=== PATIENT | female | born 1990 | race American Indian/Alaskan Native ===

== ENCOUNTER 2019-02-10 18:24 | Emergency (ER) | payer OTHER ==
[2019-02-10 18:29] VITALS: BP 124/46
--- NOTE | 2019-02-10 18:34 | Emergency Department Report ---
Blank Doc - Documentation Documentation: suddne onset of lower abdominal pain
[2019-02-10 19:31] LABS: Bacteria,Urine 2+ /HPF (Negative); Bilirubin,Urine NEG (Negative); Blood,Urine NEG (Negative); Color,Urine Amber (Yellow); Hyaline Casts,Urine 11 /LPF; Mucus,Urine 3+ /HPF
[2019-02-10 19:32] LABS: HCG Qualitative,Urine Negative (Negative)
[2019-02-10] MEDS ORDERED: ULTRAM PO ONE (20:18)
--- NOTE | 2019-02-10 20:21 | Emergency Department Report ---
ED Abdominal Pain HPI - General Chief Complaint: Abdominal Pain Stated Complaint: PELVIC/LEG PAIN Time Seen by Provider: 02/10/19 18:30 Source: patient Mode of arrival: Ambulatory Limitations: No Limitations - History of Present Illness Initial Comments: 28-year-old female presents with lower abdominal pain since this morning. Patient says she has regularly experienced this pain, however, it is usually at the onset of her period. Patient states she is currently not on her menstrual period. States LMP was 01/22/19. Patient denies dysuria, hematuria, urinary frequency, vaginal discharge. Patient states her mother says she may have fibroids. CRM DYNAMICS DEVELOPER: none MD Complaint: abdominal pain -: This morning Location: suprapubic Radiation: none Migration to: no migration Severity: moderate Severity scale (0 -10): 8 Quality: cramping Consistency: constant Improves With: nothing Worsens With: nothing Associated Symptoms: denies: nausea, vomiting, diarrhea, fever, dysuria - Related Data LMP (females 10-50): 3 weeks Previous Rx's Medication Instructions Recorded Last Taken Type Naproxen [Naprosyn] 500 mg PO BID PRN #12 tablet 12/27/18 Unknown Rx Promethazine [Phenergan TAB] 25 mg PO Q6HR PRN #12 tab 12/27/18 Unknown Rx cephALEXin [Keflex] 500 mg PO Q12H 7 Days #14 cap 12/27/18 Unknown Rx traMADol [Ultram] 50 mg PO Q6HR PRN #7 tablet 02/10/19 Unknown Rx Allergies Allergy/AdvReac Type Severity Reaction Status Date / Time acetaminophen Allergy Swelling Verified 02/10/19 18:25 [From Pamprin Max] aspirin [From Pamprin Max] Allergy Swelling Verified 02/10/19 18:25 caffeine [From Pamprin Max] Allergy Swelling Verified 02/10/19 18:25 ED Review of Systems ROS: Stated complaint: PELVIC/LEG PAIN Other details as noted in HPI Comment: All other systems reviewed and negative Constitutional: denies: chills, fever Gastrointestinal: abdominal pain. denies: nausea, vomiting Genitourinary: denies: dysuria, frequency, hematuria, discharge ED Past Medical Hx - Past Medical History Previous Medical History?: Yes Additional medical history: thrombocytosis, anemia - Surgical History Past Surgical History?: No - Social History Smoking Status: Never Smoker Substance Use Type: None - Medications Home Medications: Home Medications Medication Instructions Recorded Confirmed Last Taken Type Naproxen [Naprosyn] 500 mg PO BID PRN #12 tablet 12/27/18 Unknown Rx Promethazine [Phenergan TAB] 25 mg PO Q6HR PRN #12 tab 12/27/18 Unknown Rx cephALEXin [Keflex] 500 mg PO Q12H 7 Days #14 cap 12/27/18 Unknown Rx traMADol [Ultram] 50 mg PO Q6HR PRN #7 tablet 02/10/19 Unknown Rx ED Physical Exam - General Limitations: No Limitations General appearance: alert, in no apparent distress - Head Head exam: Present: atraumatic, normocephalic - Eye Eye exam: Present: normal appearance - ENT ENT exam: Present: mucous membranes moist - Neck Neck exam: Present: normal inspection - Respiratory Respiratory exam: Present: normal lung sounds bilaterally. Absent: respiratory distress - Cardiovascular Cardiovascular Exam: Present: regular rate, normal rhythm - GI/Abdominal GI/Abdominal exam: Present: soft, tenderness (mild suprapubic), mass (in suprapubic area). Absent: distended - Extremities Exam Extremities exam: Present: normal inspection - Neurological Exam Neurological exam: Present: alert, oriented X3 - Psychiatric Psychiatric exam: Present: normal affect, normal mood - Skin Skin exam: Present: warm, dry, intact, normal color ED Course Vital Signs 02/10/19 02/10/19 18:28 20:08 Temperature 97.8 F Pulse Rate 71 Respiratory 13 18 Rate Blood Pressure 124/46 [Right] O2 Sat by Pulse 100 99 Oximetry ED Medical Decision Making - Radiology Data Radiology results: report reviewed - Medical Decision Making 28-year-old female with lower abdominal cramping. She states she gets this pain monthly prior to onset of her menstrual period. UA shows possible UTI, however large epithelial cells present, so seems to be inadequate sample. Patient denies dysuria, urinary frequency, so likely not a UTI. Patient's discomfort is likely coming from uterine fibroids, shown on ultrasound. No other abnormality seen. Advised outpatient follow-up with production support supervisor. Patient given ultram prescription for pain. Return precautions given. - Differential Diagnosis , fibroids, UTI Critical care attestation.: If time is entered above; I have spent that time in minutes in the direct care of this critically ill patient, excluding procedure time. ED Disposition Clinical Impression: Uterine fibroid Disposition: - TO HOME OR SELFCARE Is pt being admited?: No Condition: Stable Instructions: Uterine Fibroids (ED), Abdominal Pain (ED) Prescriptions: traMADol [Ultram] 50 mg PO Q6HR PRN #7 tablet PRN Reason: Pain [facility] [Primary Care Provider] - 3-5 Days [facility] [Provider Group] - 3-5 Days Forms: Work/School Release Form(ED) Time of Disposition: 22:40
--- NOTE | 2019-02-10 22:33 | Ultrasound Report ---
PROCEDURE: US PELVIS DUPLEX DOPPLER COMP TECHNIQUE: Real-time transabdominal sonography in multiple planes of the pelvis was performed with i mage documentation. Grayscale, color flow Doppler imaging and velocity spectral waveform analysis of the ovaries was employed (duplex imaging). HISTORY: pelvic pain COMPARISONS: None . FINDINGS: UTERUS Size: 1.1 x 9.4 x 14.9 cm. Endometrial thickness: Endometrium is not well delineated. Orientation: Anteverted and retroflexed. Fibroids/masses: Multiple mixed echoic lesions are identified in the uterus largest measuring 6.9 x 6 .4 cm located in the posterior upper body. RIGHT Ovary: 1.0 x 2.3 x 2.4 cm. Appearance: Normal. Doppler images: Unremarkable.. LEFT Ovary: Nonvisualized Pelvic fluid: None. IMPRESSION: Enlarged uterus with multiple fibroids largest measuring 6.9 x 6.4 cm. This document is electronically signed by Son Cuevas MD., February 10 2019 10:31:15 PM ET
--- NOTE | 2019-02-10 22:38 | Ultrasound Report ---
PROCEDURE: US TRANSVAGINAL TECHNIQUE: Real-time transvaginal sonography in multiple planes of the pelvis was performed with [facility] documentation. Grayscale, color flow Doppler imaging and velocity spectral waveform analysis of th e ovaries was employed (duplex imaging). HISTORY: pelvic pain COMPARISONS: None FINDINGS: UTERUS Size: 21 1 x 9.4 x 14.9 cm. Endometrial thickness: Endometrial stripe is not well-visualized Orientation: Anteverted and retroflexed. Fibroids/masses: Multiple mixed echoic lesions are noted in the uterus largest measuring 6.9 x 6.4 cm located in the posterior upper body.. RIGHT Ovary: 4.0 x 2.3 x 2.4 cm. Appearance: Normal. Doppler: Unremarkable.. LEFT Ovary: Nonvisualized Pelvic fluid: None. IMPRESSION: Enlarged uterus with multiple focal lesions consistent with fibroids.. This document is electronically signed by Son Cuevas MD., February 10 2019 10:36:05 PM ET
== END 2019-02-10 23:27 | disposition home or self-care (01) ==
LOC: ED 18:24
DX: D25.9 Leiomyoma of uterus, unspecified (principal); Z88.6 Allergy status to analgesic agent; Z91.018 Allergy to other foods; Z86.2 Personal history of diseases of the blood and blood-forming organs and certain disorders involving the immune mechanism
CPT/HCPCS: 76830; 81001; 81025; 93975; 99284